=== PATIENT | male | born 1960 | race Hispanic/Latino ===

== ENCOUNTER 2020-12-07 11:37 | Day surgery (SDC) | payer OTHER ==
[2020-11-30 11:29] LABS: BASOPHILS % (AUTO) 0.8 % (0.0-5.0); EOSINOPHILS % (AUTO) 1.6 % (0.0-8.0); HEMATOCRIT 45.4 % (42-54); LYMPHOCYTES % (AUTO) 33.3 % (21.0-51.0); MEAN CORPUSCULAR HEMOGLOBIN 31.3 pg (27.0-33.0); MEAN CORPUSCULAR HGB CONC 33.9 g/dL (32.0-36.0); MEAN CORPUSCULAR VOLUME 92.3 fL (79-99); MONOCYTES % (AUTO) 10.1 % (3.0-13.0); PLATELET COUNT (AUTO) 237 K/uL (130-400); RED BLOOD CELL COUNT(AUTO) 4.92 MIL/uL (4.50-6.20); RED CELL DISTRIBUTION WIDTH 12.8 % (11.0-15.5); WHITE BLOOD COUNT (AUTO) 6.1 K/uL (4.8-10.8)
[2020-11-30 11:46] LABS: ALBUMIN 4.2 g/dL (3.5-5.0); BILIRUBIN,TOTAL 0.7 mg/dL (0.2-1.0); CREATININE 0.8 mg/dL (0.5-1.5); POTASSIUM 5.1 mmol/L (3.5-5.1); TOTAL PROTEIN, SERUM 7.8 g/dL (6.0-8.3)
[2020-12-06 11:22] VITALS: BP 134/72
[~2020-12-07] VITALS: Ht 170.2 cm; Wt 85.1 kg
[2020-12-07] VITALS (17 sets, daily range): BP systolic 128–151; BP diastolic 71–83
[~2020-12-07 11:37] MED LIST: 0.9% NACL 500ML IV.SOLN 500 ML IV SCH; vitamin d PO
[2020-12-07] MEDS: CEFAZOLIN SODIUM 1 GM VIAL IVP SCH ×2 (12:00→18:03)
[2020-12-07] MEDS ORDERED: 0.9%NACL 1000ML 1,000 ML IV ONE (12:16)
[2020-12-07] MEDS ORDERED: BUPIVACAINE/PF 0.5% 30ML VIAL ONE (17:48)
[2020-12-07] MEDS ORDERED: LIDOCAINE HCL MPF 1% 5ML VIAL ONE (17:52)
[2020-12-07] MEDS ORDERED: SUCCINYLCHOLINE CHLORIDE 20 MG/ML 10 ML VIAL ONE (17:52)
[2020-12-07] MEDS ORDERED: ROCURONIUM 10MG/1ML SYR 10 MG/ML ML ONE (17:53)
[2020-12-07] MEDS ORDERED: PROPOFOL 10 MG/ML 20ML VIAL IV ONE (17:53)
[2020-12-07] MEDS ORDERED: FENTANYL CITRATE PF 50 MCG/1 ML 2ML VIAL ONE (17:53)
[2020-12-07] MEDS ORDERED: MIDAZOLAM HCL 1 MG/ML 2ML VIAL ONE (17:53)
[2020-12-07] MEDS ORDERED: GLYCOPYRROLATE 1 MG/5 ML SYRINGE ONE (18:43)
[2020-12-07] MEDS ORDERED: NEOSTIGMINE 5MG/5ML SYR IV ONE (18:44)
[2020-12-07] MEDS ORDERED: MEPERIDINE-PF 25 MG/ML SYG ONE ×2 (19:06→19:32)
== END 2020-12-07 20:55 | disposition home or self-care (01) ==
LOC: DAH 11:37
PROVIDERS: ATTEND Student in an Organized Health Care Education/Training Program
DX: K80.10 Calculus of gallbladder with chronic cholecystitis without obstruction (principal); Z20.822 Contact with and (suspected) exposure to COVID-19; E11.9 Type 2 diabetes mellitus without complications; E66.9 Obesity, unspecified; E78.2 Mixed hyperlipidemia; Z87.891 Personal history of nicotine dependence; Z83.3 Family history of diabetes mellitus; Z68.30 Body mass index [BMI] 30.0-30.9, adult; Z79.899 Other long term (current) drug therapy
CPT/HCPCS: 36415; 47562; 71045; 80053; 82948 ×2; 85025; 87426; 93005; A4213; A4215; A4221; A4222; A4223; A4600; A4649 ×2; A4663; A6206; A6207; A6260; C1769 ×3; J0330; J0690; J2175 ×2; J2250; J2704; J2710; J3010; J3490 ×3; J7030 ×2

== ENCOUNTER → 2024-07-13 | Outpatient (CLI) | payer OTHER ==
[~2024-07-13] MED LIST changes: -0.9% NACL 500ML IV.SOLN 500 ML IV SCH
--- NOTE | 2024-07-13 16:58 | HMCIMG ---
HAND 3+VWS LT HISTORY: Status post fall COMPARISON: None TECHNIQUE: 3 images of the left hand were obtained. FINDINGS: There is no acute displaced fracture or dislocation. Radiocarpal joint space narrowing and interphalangeal joint space narrowing are seen. Degenerative changes are seen. IMPRESSION: 1. Findings as described above.
--- NOTE | 2024-07-13 17:39 | HMCIMG ---
SKULL LTD 2-3VW HISTORY: Pain COMPARISON: None TECHNIQUE: 4 images of skull were obtained. FINDINGS: There is no acute displaced fracture or dislocation. Degenerative changes are seen. IMPRESSION: 1. Findings as described above.
--- NOTE | 2024-07-13 17:51 | HMCIMG ---
NASAL BONES COMP 3+VWS REASON: PAIN, UNSPECIFIED. COMPARISON: None TECHNIQUE: 3 images of the nasal bones were obtained. FINDINGS: No acute displaced fracture is seen. Nondisplaced fracture cannot be excluded. IMPRESSION: No acute displaced fracture.
== END | disposition home or self-care (01) ==
LOC: RAH 14:59
PROVIDERS: ATTEND Internal Medicine
DX: S02.2XXA Fracture of nasal bones, initial encounter for closed fracture (principal); M19.042 Primary osteoarthritis, left hand; M25.842 Other specified joint disorders, left hand; M47.812 Spondylosis without myelopathy or radiculopathy, cervical region; J34.89 Other specified disorders of nose and nasal sinuses; R51.9 Headache, unspecified; Z91.81 History of falling; W19.XXXA Unspecified fall, initial encounter; Y93.89 Activity, other specified; Y92.89 Other specified places as the place of occurrence of the external cause; Y99.8 Other external cause status
CPT/HCPCS: 70160; 70250; 73130

== ENCOUNTER → 2025-01-26 | Outpatient (CLI) | payer OTHER ==
--- NOTE | 2025-01-26 23:47 | HMCIMG ---
EXAM: CR Abdomen, 1 view. CLINICAL HISTORY: Pain. COMPARISON: None provided. FINDINGS: Abundant colonic fecal matter may reflect constipation. Nonobstructed nonspecific bowel gas pattern. No free air is evident. No abnormal calcification. No aggressive appearing osseous lesion. Prior cholecystectomy. IMPRESSION: Nonobstructive bowel gas pattern. Abundant colonic fecal matter may reflect constipation. /[place]
== END | disposition home or self-care (01) ==
LOC: RAH 15:21
PROVIDERS: ATTEND Internal Medicine
DX: R14.0 Abdominal distension (gaseous) (principal); R10.9 Unspecified abdominal pain
CPT/HCPCS: 74018